=== PATIENT | female | born 1955 | race Caucasian/White ===

== ENCOUNTER 2017-10-03 18:43 | Emergency (ER) | payer OTHER ==
[~2017-10-03] VITALS: Ht 154.9 cm; Wt 102.5 kg
[2017-10-03 19:09] VITALS: Ht 154.9 cm; Wt 102.5 kg
[2017-10-03 23:23] VITALS: BP 134/75
== END 2017-10-03 23:23 | disposition home or self-care (01) ==
LOC: ED 18:43
DX: K05.10 Chronic gingivitis, plaque induced (principal); I10 Essential (primary) hypertension; E11.9 Type 2 diabetes mellitus without complications; E78.00 Pure hypercholesterolemia, unspecified; M79.1 Myalgia
CPT/HCPCS: J1885